=== PATIENT | female | born 1970 | race Hispanic/Latino ===

== ENCOUNTER 2022-03-21 13:43 | Emergency (ER) | payer OTHER ==
[2022-03-21 14:22] LABS: #Eosinphils 0.2 thou/uL (0.0-0.7); #Lymphocytes 1.3 thou/uL (1.20-3.40); #Monocytes 0.4 thou/uL (0.11-0.59); #Neutrophils 6.1 thou/uL (1.40-6.50); %Basophils 0.3 % (0.0-1.0); %Eosinophils 2.6 % (0.0-10.0); %Lymphocytes 15.9 % (21.0-51.0); %Monocytes 4.8 % (0.0-10.0); %Neutrophils 76.4 % (42.0-75.0); Hemoglobin 11.3 g/dL (12.0-16.0); Mean Corpuscular HGB CONC 33.5 g/dL (32.0-36.0); Mean Corpuscular Hemoglobin 29.8 pg (27.0-31.0); Mean Corpuscular Volume 89.2 fl (78.0-98.0); Mean Platelet Volume 8.5 fL (7.4-10.4); Platelet Count 279 10x3/uL (130-400); RBC Distribution Width 13.6 % (11.5-14.5)
[2022-03-21 14:44] LABS: Actual Bicarbonate (HCO3v) 24 mEq/L (22-28); Base Excess -2.5 mEq/L (-2.0 to +3.0); Calcium, Ionized (venous) 1.12 mmol/L (1.16-1.32); Chloride (VBG) 105 mmol/L (98-106); Hemoglobin (Hb) 12.2 g/dL (11.7-16.0); Potassium (VBG) 4.44 mmol/L (3.70-5.30); Sodium 141.3 mmol/L (133-146); pH (venous) 7.31 (7.32-7.43)
[2022-03-21 14:45] LABS: ALT (SGPT) 21 U/L (8-55); AST (SGOT) 18 U/L (5-34); Albumin 3.6 g/dL (3.5-5.0); Alkaline Phosphatase 91 U/L (40-110); Anion Gap 14 mmol/L (10-20); BUN (Urea Nitrogen) 25 mg/dL (9.8-20.1); Bilirubin, Total 0.2 mg/dL (0.2-1.2); Calc. Creatinine Clearance 0 mL/min (70-130); Carbon Dioxide 25 mmol/L (22-29); Chloride 105 mmol/L (98-107); Estimated GFR 56; Globulin 3.1 g/dL (2.4-3.5); Glucose 287 mg/dL (70-105); Potassium 4.1 mmol/L (3.5-5.1); Protein, Total 6.7 g/dL (6.0-8.3); Sodium 140 mmol/L (136-145)
== END 2022-03-21 18:48 | disposition home or self-care (01) ==
LOC: ERS 13:43
DX: R53.1 Weakness (principal); E11.9 Type 2 diabetes mellitus without complications; I10 Essential (primary) hypertension; E78.5 Hyperlipidemia, unspecified; Z79.899 Other long term (current) drug therapy
CPT/HCPCS: 36415; 36416; 70450; 71045; 80053; 82805; 84484; 85025; 85379; 93005; 94760